=== PATIENT | female | born 1985 | race Caucasian/White ===

== ENCOUNTER 2018-12-05 05:22 | Inpatient (IN) | payer BC ==
[~2018-12-05] VITALS: Ht 165.1 cm; Wt 69.4 kg
[~2018-12-05 05:22] MED LIST: ACET-1718 PO; ACET-1966 PO; DOCU-416 PO; IBUP800T37 PO; MAGN1TAB25 PO; PREN-127 PO
[2018-12-05] MEDS ORDERED: FAMOTIDINE(*) 20MG/50ML PREMIX 50 ML IVPB PRN (05:23)
[2018-12-05] MEDS ORDERED: cefOXitin/DEX(*) 2GM/50ML PREM 50 ML IVPB PRN (05:25)
[2018-12-05] MEDS ORDERED: METOCLOPRAMIDE 10 MG/2 ML SDV IVP PRN (05:25)
[2018-12-05] MEDS ORDERED: LIDOCAINE 1% LOCAL 300 MG/30ML INJ PRN (05:25)
[2018-12-05] MEDS ORDERED: fentaNYL CITR 100 MCG/2 ML AMP IVP PRN (05:25)
[2018-12-05] MEDS ORDERED: LIDOCAINE/SOD BICARB 8.4% SYR SC PRN (05:25)
[2018-12-05] MEDS ORDERED: FLUSH 10 ML SYR IVP PRN (05:25)
[2018-12-05] MEDS ORDERED: TERBUTALINE SULF 1 MG/ML VIAL SUBQ PRN (05:25)
[2018-12-05] MEDS ORDERED: OXYTOCIN 30 UNIT/D5LR 500 ML 500 ML IV SCH (05:30)
[2018-12-05 05:46] VITALS: BP 120/78
[2018-12-05 05:52] VITALS: Ht 165.1 cm; Wt 69.4 kg
[2018-12-05 06:55] LABS: PLATELET COUNT, AUTOMATED 152 K/uL (150-450)
[2018-12-05] MEDS: LR(*) 1000 ML BAG 1,000 ML IV PRN ×2 (07:37→12:11)
--- NOTE | 2018-12-05 08:26 | History & Physical ---
History of Present Illness Age of Patient: 33 : 2 Para or TPAL: 1 EDC per LMP: Dec 17, 2018 Estimated Gestational Age: 38.2 Chief Complaint Labor induction History of Present Illness Rosangela is a mika at 38.2 weeks here for scheduled IOL due to asymmetric IUGR. Rosangela had this same problem in her last also with low amniotic fluid and was induced. She has an anterior placenta in this and on last u/s exam, was at the 24%ile with lagging AC at 2.7%. GBS negative. Rosangela is healthy otherwise. Past Medical, Surgical, Family and Obstetric Histories reviewed. Please see [facility] chart. History Allergies: Coded Allergies: No Known Drug Allergies (Unverified , 11/09/16) Social History: No T/E/D. Med Rec Home Meds Reported Medications Acetaminophen (TYLENOL) 325 Mg Tablet, 325 MG PO, TAB 11/28/18 Magnesium Carbonate/Al Hydrox (GAVISCON ES TABLET CHEW) 1 Each Tab.chew, 1 EACH PO, TAB.CHEW 11/28/18 Vits W-Ca,Fe,Fa(<1MG) ( VITAMINS) 1 Each Tablet, 1 EACH PO DAILY, TAB 11/09/16 Discontinued Scripts Docusate Sodium (COLACE) 100 Mg Capsule, 100 MG PO BID PRN for constipation, #90 CAPSULE 1 Refill Prov:EZEQUIEL MCKNIGHT MD 11/11/16 Ibuprofen (IBUPROFEN) 800 Mg Tablet, 1 TAB PO Q8H PRN for pain, #30 TAB 0 Refills TAKE WITH FOOD EVERY 8 HOURS Prov:EZEQUIEL MCKNIGHT MD 11/11/16 Acetaminophen With Codeine # 3 (ACETAMINOPHEN-COD #3 TABLET) 1 Each Tablet, 1-2 EACH PO Q4H PRN for pain, #30 TAB 0 Refills Take 1-2 tablets as needed for pain no closer than every 4 hours. Prov:EZEQUIEL MCKNIGHT MD 11/11/16 Review of Systems All Systems Reviewed/Normal: Yes, Except as Noted Exam General Exam Vital Signs Vital Signs Date Time Temp Pulse Resp B/P (MAP) Pulse Ox O2 Delivery O2 Flow Rate FiO2 12/05/18 05:46 98.0 70 15 120/78 (92) 92 Room Air General Apperance: Alert/Awake/No Acute Distress Neuro: No Gross deficits Eyes: Normal Extraocular Movement & Vison Cardiovascular: Regular Rate and Rhythm Respiratory: No Respiratory Distress Abdomen: Soft, Non-Tender, Non-Distended, Gravid - Non-Tender Integumentary: Skin Intact without Lesions or Rash Psychological: Alert & Oriented X3, Appropriate Mood & Affect Vaginal Discharge/Fluid?: Clear Fluid Cervical Dialation: 3.5 Cervical Effacement (%): 90 Cervical Consistency: Soft Cervical Position: Mid Station: -2 Presentation: Vertex Fetus Heart Tone Variabilty: Moderate FHT Accelerations: 15X15 FHT Category: I Medical Decision Making Data Points Result Diagram: 12/05/18 0642 VTE Prophylasis: Adult Deep Vein Thrombosis/Pulmonary: No Pharmacological Contraindicati: Pt at Low Risk for VTE Mechanical Contraindications: Pt at Low Risk for VTE 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 AROM performed and clear fluid noted. Expecting . Problem Qualifiers (1) IUGR (intrauterine growth restriction) affecting care of mother: Fetus number: single or unspecified fetus Trimester: third trimester Qualified Codes: O36.5930 - Maternal care for other known or suspected poor growth, third trimester, not applicable or unspecified ERIK KAUFMAN MD Dec 05, 2018 08:26
[2018-12-05] MEDS ORDERED: BUPIVACAINE 0.25% MPF INJ EPI PRN (09:00)
[2018-12-05] MEDS ORDERED: LIDO/EPI 2% MPF 1:200,000 20ML EPI PRN (09:00)
[2018-12-05] MEDS ORDERED: FENTANYL/ROPIVACAINE 100 ML BAG EPI PRN (09:00)
[2018-12-05] MEDS ORDERED: fentaNYL CITR 100 MCG/2 ML AMP IT PRN (09:00)
[2018-12-05] MEDS ORDERED: ONDANSETRON 4 MG/2 ML VIAL IVP PRN (09:00)
[2018-12-05] MEDS ORDERED: EPIDURAL KEYS XX PRN (09:00)
[2018-12-05] MEDS ORDERED: BUPIVACAINE 0.5% INJ 30ML VIAL EPI PRN (09:00)
[2018-12-05] MEDS ORDERED: LIDOCAINE/PF 2% 200MG/10ML AMP 200 MG/10 ML AMPUL EPI PRN (09:00)
--- NOTE | 2018-12-05 11:41 | Anesthesia OB Pre-Anes Eval ---
History of Present Illness Anesthesia Start Date: Dec 05, 2018 Anesthesia Start Time: 10:49 OB Anesthesia Diagnosis: induction - medical Current Complication: other (IUGR) EDC: Dec 17, 2018 : 2 Para: 1 Vital Signs: Vital Signs 12/05/18 05:46 Temp 98.0 Pulse 70 Resp 15 B/P (MAP) 120/78 (92) Pulse Ox 92 O2 Delivery Room Air Pain Ratin Heart Tones: 132 Result Diagram: 12/05/18 0642 Height (Inches): 65.00 Weight (Pounds): 153 Past Medical History Medical History: no pertinent history Previous Anesthesia: epidural Attended Childbirth Classes?: No Hx Anesthesia Reactions: No Hx Family Anesthesia Reaction: No Current Medications: pitocin, pain medication Home Meds Reported Medications Acetaminophen (TYLENOL) 325 Mg Tablet, 325 MG PO, TAB 11/28/18 Magnesium Carbonate/Al Hydrox (GAVISCON ES TABLET CHEW) 1 Each Tab.chew, 1 EACH PO, TAB.CHEW 11/28/18 Vits W-Ca,Fe,Fa(<1MG) ( VITAMINS) 1 Each Tablet, 1 EACH PO DAILY, TAB 11/09/16 Discontinued Scripts Docusate Sodium (COLACE) 100 Mg Capsule, 100 MG PO BID PRN for constipation, #90 CAPSULE 1 Refill Prov:EZEQUIEL MCKNIGHT MD 11/11/16 Ibuprofen (IBUPROFEN) 800 Mg Tablet, 1 TAB PO Q8H PRN for pain, #30 TAB 0 Refills TAKE WITH FOOD EVERY 8 HOURS Prov:EZEQUIEL MCKNIGHT MD 11/11/16 Acetaminophen With Codeine # 3 (ACETAMINOPHEN-COD #3 TABLET) 1 Each Tablet, 1-2 EACH PO Q4H PRN for pain, #30 TAB 0 Refills Take 1-2 tablets as needed for pain no closer than every 4 hours. Prov:EZEQUIEL MCKNIGHT MD 11/11/16 Allergies: Coded Allergies: No Known Drug Allergies (Unverified , 11/09/16) Anesthesia OB ROS Neurological: No migraines/headaches, No seizures, No neuropathy, No other ENT: Denies Tooth caps, Denies Loose teeth, Denies Chipped teeth, Denies Dentures, Denies Bridges, Denies Retainers, Denies Veneers, Denies Implants, Denies Tongue ring, Denies Other Pulmonary: No asthma, No smoker (pks/day/yrs), No other Airway Class: l Cardiovascular ROS: No edema, No arrhythmia, No other GI ROS: clear liquids Last Solids Date: Dec 05, 2018 Last Solids Time: 04:30 ROS: No Herpes, No STD(s), No Liver Disease, No Renal Disease, No Other Endocrine ROS: No diabetes, No gestational diabetes, No thyroid disorder, No other Musculoskeletal ROS: No low back pain, No low back injury, No scoliosis, No other ASA Classification: 2 Assessment and Plan Anesthesia Plan: STANISLAW CHAND CRNA Dec 05, 2018 11:41
--- NOTE | 2018-12-05 11:44 | Procedure Note ---
Anesthetic Placement Note Anesthesia Plan: CSE Permit for Anesthesia Signed: Yes Anesthesia Technique: Patient Sitting Anesthesia Prep: Chlorhexidine Interspace: L 3-4 Local Anesthetic: 1% Lidocaine Amount Local - cc's: 3 Anesthesia Needle: 17g Touhy/Schliff Anesthesia Attempts: 1 Loss of Resistance: Normal Saline Depth of CLINT (cm): 5 Epidural Needle Placement: No CSF, No Blood, No Parasthesia Intrathecal Needle: 27 Gauge Pencan Cerebral Spinal Fluid: Yes, Clear Catheter Insertion (cm): 4 (9cm=skin) Catheter Type: Sanders - Spring Wound Epidural Dressing: Tegaderm, Tape Anesthesia Tray: Lot Number ([id number]), Expiration Date (09/05), Reference Number ([id number]) Anesthesia Medications: Intrathecal Dose: mcg Fentanyl (10), mg Marcaine MPF (2.5), Time (1103) Epidural Test Dose: 1.5 Lido/Epi (1:200,000), Dose - mL (3), Time (1110), Negative Epidural Infusion: 0.2% Ropivicaine, With Fentanyl 2mcg/ml, Start Time: (1117) Epidural Pump Setting: Bolus Dose - mL (8), Lockout - Minutes (20), Maintenance Rate - mL/hr (6), Maximum per Hour - mL (30) Complications: None STANISLAW QUINONES CRNA Dec 05, 2018 11:44
--- NOTE | 2018-12-05 13:05 | Anesthesia Progress Note ---
Assessment and Plan Anesthesia Plan: CSE Anesthesia Stop Day: Dec 05, 2018 Anesthesia Stop Time: 13:00 STANISLAW QUINONES CRNA Dec 05, 2018 13:05
[2018-12-05] MEDS ORDERED: LANOLIN OINT 7 GM TUBE TP PRN (13:15)
[2018-12-05] MEDS ORDERED: GLYCERIN/WITCH HAZEL LEAF 1 PK TP PRN (13:15)
[2018-12-05] MEDS ORDERED: HYDROCORTISONE 2.5% CR 30GM TB PR PRN (13:15)
[2018-12-05] MEDS ORDERED: MAGNESIUM HYDROXIDE* 30ML UDCP PO PRN (13:15)
[2018-12-05] MEDS ORDERED: BENZOCAINE 20% 60 ML BTL TP PRN (13:15)
[2018-12-05] MEDS ORDERED: APAP/HYDROCODONE 325/5 TAB PO PRN (13:15)
[2018-12-05] MEDS ORDERED: ACETAMINOPHEN 325 MG TAB PO PRN (13:15)
--- NOTE | 2018-12-05 13:26 | OB Delivery Note ---
Delivery Note Vaginal Delivery Type: Spont. Vaginal Delivery Delivery Date: Dec 05, 2018 Delivery Time: 12:49 Estimated Gestational Age(wks): 38 Delivery Anesthesia: Epidural Infant Sex: Male [place] Apgars: 1 Minute (7), 5 Minute (9) Repair Needed: Laceration, 1st Degree Estimated Blood Loss: 300 Notes: Presented for IOL secondary to asymmetric IUGR. Pitocin induction and epidural. Progressed from 3 cm on admission to 4 cm by 0945, 6 cm by 1140 and completely dilated by 1225. MARCO ANTONIO position and delivered over first degree laceration. Nuchal cord x 1. Placenta delivered spontaneously and intact. Repair with 2-0 chromic without complication. Utility Worker Driver in Attendence: No Copies to: ERIK KAUFMAN MD ; ERIK KAUFMAN MD Dec 05, 2018 13:26
[2018-12-05] MEDS: IBUPROFEN 800 MG TAB PO SCH (17:49)
[2018-12-05 20:32] VITALS: BP 125/58
[2018-12-05] MEDS: DOCUSATE CALCIUM 240 MG CAP PO SCH (20:45)
[2018-12-05 23:13] VITALS: BP 111/54
[2018-12-06] MEDS: IBUPROFEN 800 MG TAB PO SCH ×3 (01:49→16:56)
[2018-12-06 03:04] VITALS: BP 124/82
[2018-12-06 05:20] VITALS: BP 124/82
--- NOTE | 2018-12-06 07:52 | OB/GYN Progress Note ---
OB Subjective Progress Notes Subjective Doing well. Little pain and voiding well. Has been up to shower this morning. Still tired and may need another night. GI: NEG Nausea : Voiding Well Pain: Mild OB Objective Physical Exam Vital Signs Date Time Temp Pulse Resp B/P (MAP) Pulse Ox O2 Delivery O2 Flow Rate FiO2 12/06/18 03:04 98.4 84 16 124/82 (96) Room Air 12/05/18 05:46 92 Intake and Output 12/06/18 07:00 Intake Total 1724 ml Balance 1724 ml Intake Oral 720 ml IV Total 1004 ml General Appearance: Alert/Awake/No Acute Distress Neurological: No Gross deficits Eyes: Normal Extraocular Movement & Vison Cardiovascular: Normal Rhythm & Peripheral Pulses, Regular Rate and Rhythm Respiratory: No Respiratory Distress, Clear to Auscultation Integumentary: Skin Intact without Lesions or Rash Psychological: Alert & Oriented X3, Appropriate Mood & Affect Result Diagram: 12/06/18 0615 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 Reviewed precautions . Problem Qualifiers (1) IUGR (intrauterine growth restriction) affecting care of mother: Fetus number: single or unspecified fetus Trimester: third trimester Qualified Codes: O36.5930 - Maternal care for other known or suspected poor growth, third trimester, not applicable or unspecified ERIK KAUFMAN MD Dec 06, 2018 07:52
[2018-12-06 08:45] VITALS: BP 112/69
[2018-12-06] MEDS: DOCUSATE CALCIUM 240 MG CAP PO SCH (08:53)
[2018-12-06] MEDS ORDERED: MEASLES,MUMP,RUBELLA VAC 0.5ML SUBQ ONE (09:00)
[2018-12-06] MEDS ORDERED: INFLUENZA VIRUS VAC 0.5ML SYR IM ONLY ONE (09:00)
[2018-12-06] MEDS ORDERED: DIPHTH/TETANUS/ACEL. PERTUSSIS IM ONLY ONE (09:00)
[2018-12-06 12:00] VITALS: BP 121/74
--- NOTE | 2018-12-06 12:15 | Anesthesia Post Eval Note ---
Anesthesia Post Eval Note Vital Signs 12/06/18 08:45 Temp 98.4 Pulse 73 Resp 18 B/P (MAP) 112/69 (83) Pulse Ox 98 O2 Delivery Room Air Pt able to participate in Eval: Yes Cardiovascular Status: Satisfactory Respiratory Status: Satisfactory Pain Managment: Satisfactory PO Nausea/Vomiting: Satisfactory Temperature Management: Satisfactory Mental Status: Satisfactory, Alert, Oriented X3 Post-Op Hydration Status: Satisfactory, Tolerating PO Well, Voiding w/o Difficulty Anesthesia Type: STANISLAW CHAND CRNA Dec 06, 2018 12:15
[2018-12-06] MEDS ORDERED: IBUP800T37 PO (16:39)
== END 2018-12-06 18:45 | disposition home or self-care (01) | DRG 807 ==
LOC: OB 05:22
PROVIDERS: ADMIT Obstetrics & Gynecology; ATTEND Obstetrics & Gynecology
PROC: 10E0XZZ Delivery of Products of Conception, External Approach (ICD-10-PCS; principal; 2018-12-05)
PROC: 0HQ9XZZ Repair Perineum Skin, External Approach (ICD-10-PCS; 2018-12-05)
PROC: 10907ZC Drainage of Amniotic Fluid, Therapeutic from Products of Conception, Via Natural or Artificial Opening (ICD-10-PCS; 2018-12-05)
PROC: 3E033VJ Introduction of Other Hormone into Peripheral Vein, Percutaneous Approach (ICD-10-PCS; 2018-12-05)
DX: O69.81X0 Labor and delivery complicated by cord around neck, without compression, not applicable or unspecified (principal); Z37.0 Single live birth; O36.5930 Maternal care for other known or suspected poor fetal growth, third trimester, not applicable or unspecified; O70.0 First degree perineal laceration during delivery; Z3A.38 38 weeks gestation of pregnancy
CPT/HCPCS: 36415; 85025; 85027; 86703; 86850; 86900; 86901; J2405; J2590; J3010; J7120; S0020